=== PATIENT | female | born 1960 | race Hispanic/Latino ===

== ENCOUNTER 2020-08-05 08:30 | Emergency (ER) | payer SELFPAY ==
--- NOTE | 2020-08-05 14:00 | XRay Report ---
RIGHT SHOULDER 3 VIEWS INDICATION / CLINICAL INFORMATION: Fall/injury. COMPARISON: None available. FINDINGS: AP views in internal and external rotation show a significantly displaced fracture of the distal clav icle. The proximal end of the fracture is just beneath the skin surface. Humerus and scapula appear negative. Signer Name: Ray Troy MD Signed: 08/05/2020 1:56 PM Workstation Name: [id number]
--- NOTE | 2020-08-05 16:20 | Emergency Department Report ---
ED General Adult HPI - General Chief complaint: Syncope Stated complaint: RT SHOULDER/FALL PUI?: No Time Seen by Provider: 08/05/20 16:19 Source: patient, RN notes reviewed Mode of arrival: Ambulatory Limitations: Physical Limitation - History of Present Illness Initial comments: The patient was evaluated in the emergency department for symptoms described in the history of present illness. He/she was evaluated in the context of the global COVID-19 pandemic, which necessitated consideration that the patient might be at risk for infection with the virus that causes COVID-19. Institutional protocols and algorithms that pertain to the evaluation of patients at risk for COVID-19 are in a state of rapid change based on infor mation released by regulatory bodies including the CDC and federal and state organizations. These policies and algorithms were followed during the patient's care in the emergency department. Please note that these policies, procedures and recommendations changed on a rapid basis. The patient is a 60-year-old female. She has a history of anxiety. She is right-hand dominant. She does not have a local primary care doctor. The patient presents to the ER with a complaint of right clavicle and shoulder pain, and possible episode of syncope. The patient reports yesterday/this evening she was in her usual state of health, without headache, neck pain, chest pain, abdominal pain or shortness of breath. She reports that overnight, she went to the bathroom, and began to urinate. Shortly after urinating, she felt slightly dizzy, lightheaded, and felt like her legs were going to give out on her. She believes that she fell to her knees, braced herself with her right hand, landed on her right shoulder, and then right face. She thinks she might of lost consciousness "for just a second", but is not certain. She denies chest pain, shortness of breath, leg pain, leg swelling, oral contraceptive use and surgery. After the fall, she has right clavicle pain, right cannon pain, and right lateral facial pain. There is a mild headache. There is no midline neck pain. There is no chest pain. There is no abdominal pain. No extremity weakness/numbness. No urinary symptoms. No loss of taste or smell. No hematemesis or bright red blood per rectum. Right shoulder pain is sharp and throbbing, increases with palpation, decreases with rest. Does not radiate anywhere. -: Sudden Location: head, face, right, upper extremity Quality: aching Consistency: constant Improves with: rest Worsens with: movement - Related Data Previous Rx's Medication Instructions Recorded Last Taken Type Acetaminophen [Non-Aspirin Extra 500 mg PO Q6HR PRN #30 tablet 08/05/20 Unknown Rx Strength] Ibuprofen [Motrin] 600 mg PO Q8H PRN #30 tablet 08/05/20 Unknown Rx Morphine Sulfate [Morphine Sulfate 7.5 mg PO Q6HR PRN #10 tablet 08/05/20 Unknown Rx IR] Allergies Allergy/AdvReac Type Severity Reaction Status Date / Time cefuroxime [From Ceftin] Allergy Rash Verified 02/06/20 10:16 erythromycin base Allergy Rash Verified 02/06/20 10:16 ED Review of Systems ROS: Stated complaint: RT SHOULDER/FALL Other details as noted in HPI Constitutional: denies: fever Eyes: denies: eye pain, eye discharge, vision change ENT: denies: throat pain Respiratory: denies: cough Cardiovascular: syncope. denies: chest pain Gastrointestinal: denies: abdominal pain, nausea, vomiting, diarrhea, hematemesis, melena Genitourinary: denies: dysuria Musculoskeletal: arthralgia, myalgia Skin: change in color Neurological: headache. denies: weakness, numbness, paresthesias, confusion Hematological/Lymphatic: denies: easy bleeding ED Past Medical Hx - Past Medical History Previous Medical History?: Yes Hx Psychiatric Treatment: Yes - Surgical History Past Surgical History?: Yes Additional Surgical History: Right knee surgery - Social History Smoking Status: Never Smoker Substance Use Type: None - Medications Home Medications: Home Medications Medication Instructions Recorded Confirmed Last Taken Type Acetaminophen [Non-Aspirin Extra 500 mg PO Q6HR PRN #30 tablet 08/05/20 Unknown Rx Strength] Ibuprofen [Motrin] 600 mg PO Q8H PRN #30 tablet 08/05/20 Unknown Rx Morphine Sulfate [Morphine Sulfate 7.5 mg PO Q6HR PRN #10 tablet 08/05/20 Unknown Rx IR] ED Physical Exam - General Limitations: No Limitations General appearance: alert, anxious, obese - Head Head exam: Present: normocephalic, other (There is a left-sided chin ecchymosis) - Eye Eye exam: Present: normal appearance, PERRL, EOMI, periorbital tenderness (There is right lateral periorbital tenderness. There is right lateral periorbital swelling and ecchymosis.), other (Visual acuity intact to finger counting, color perception, reading at a close distance). Absent: nystagmus - ENT ENT exam: Present: normal exam, normal orophraynx, mucous membranes moist, normal external ear exam - Neck Neck exam: Present: normal inspection, full ROM. Absent: tenderness, meningismus - Respiratory Respiratory exam: Present: normal lung sounds bilaterally. Absent: respiratory distress, wheezes, rales, rhonchi, stridor, decreased breath sounds - Cardiovascular Cardiovascular Exam: Present: regular rate, normal rhythm, normal heart sounds. Absent: bradycardia, tachycardia, irregular rhythm, systolic murmur, diastolic murmur, rubs, gallop - GI/Abdominal GI/Abdominal exam: Present: soft. Absent: distended, tenderness, guarding, r ebound, rigid, pulsatile mass - Extremities Exam Extremities exam: Present: full ROM (Sensation is intact to light touch in the bilateral deltoid, median, radial, ulnar distribution. There is no long bony tenderness of the bilateral upper or lower extremities.), tenderness (The right distal lateral is tender, and deformed, without skin laceration), other (2+ pulses noted in the bilateral upper and lower extremities. There is no palpable cord. negative Homans sign. Muscular compartments are soft. The pelvis is stable.). Absent: pedal edema, calf tenderness - Back Exam Back exam: Present: normal inspection, full ROM. Absent: tenderness, CVA tenderness (R), CVA tenderness (L), paraspinal tenderness, vertebral tenderness - Neurological Exam Neurological exam: Present: alert, oriented X3, other (No facial droop. Tongue midline. Extraocular movements intact bilaterally. Facial sensation intact to light touch in V1, V2, V3 distribution bilaterally. 5 and a 5 strength in 4 extremities. Sensation intact to light touch in 4 extremities.). Absent: motor sensory deficit - Psychiatric Psychiatric exam: Present: anxious - Skin Skin exam: Present: warm, ecchymosis. Absent: rash ED Course Vital Signs 08/05/20 08/05/20 08/05/20 09:00 09:21 16:49 Temperature 97.9 F 98.4 F Pulse Rate 98 H 85 Respiratory 18 20 22 Rate Blood Pressure 128/86 100/56 O2 Sat by Pulse 98 100 Oximetry - Reevaluation(s) Reevaluation #1: 08/05/20 16:54 Differential diagnosis, include but not limited to: Orthostasis, vagal event, dehydration, electrolyte derangement, thyroid derangement, arrhythmia, closed head injury, concussion, clavicular fracture Assessment and plan: 60-year-old female, who is clinically sober at this time, with a GCS of 15, not currently tachycardic, tachypneic or hypoxic, without DVT or pulmonary embolism risk factors, low risk by Wells criteria, assuming negative troponin, low risk for major adverse cardiac event as per heart score, who presents with episode of possible loss of consciousness approximately 15 hours ago. Patient was asymptomatic prior to urinating. Suspect vagal event. Patient has been observed in this department for hours without recurrent syncopal events or loss of consciousness. Place patient on caster helper, obtain appropriate laboratory studies, CT scan of the brain, facial bones, and placed the right upper extremity in a sling. We will treat the patient's pain. Counseled patient that she should not drive or operate motor vehicles for the next 6 months, she will need to closely follow-up with outpatient orthopedics and cardiology, for her clavicular fracture, and episode of syncope, respectively. 08/05/20 18:[address] scan of the brain negative for acute findings. Patient has been observed in this department for approximately 10 hours without recurrent syncope, or clinical decompensation. Suitable to follow-up with outpatient. Prescriptions are written, sling will be distributed, patient will be counseled to follow-up with outpatient primary care, cardiology, orthopedics. ED Medical Decision Making - Lab Data Result diagrams: 08/05/20 16:39 08/05/20 16:39 Vital Signs 08/05/20 16:49 Respiratory 22 Rate Vital Signs 08/05/20 08/05/20 08/05/20 09:00 09:21 16:49 Temperature 97.9 F 98.4 F Pulse Rate 98 H 85 Respiratory 18 20 22 Rate Blood Pressure 128/86 100/56 O2 Sat by Pulse 98 100 Oximetry Lab Results 08/05/20 Range/Units 16:39 Hgb 12.8 (10.1-14.3) gm/dl Hct 38.3 (30.3-42.9) % Plt Count 387 (140-440) K/mm3 Lab Results 08/05/20 08/05/20 08/05/20 Range/Units 16:39 16:39 16:39 Hgb 12.8 (10.1-14.3) gm/dl Hct 38.3 (30.3-42.9) % Plt Count 387 (140-440) K/mm3 Sodium 136 L (137-145) mmol/L Potassium 4.8 (3.6-5.0) mmol/L Chloride 99.2 (98-107) mmol/L Carbon Dioxide 25 (22-30) mmol/L Anion Gap 17 mmol/L BUN 4 L (7-17) mg/dL Creatinine 0.5 L (0.6-1.2) mg/dL Estimated GFR > 60 ml/min BUN/Creatinine Ratio 8 % Glucose 103 H (65-100) mg/dL Calcium 9.9 (8.4-10.2) mg/dL Magnesium 2.10 (1.7-2.3) mg/dL Total Creatine Kinase 226 H (30-135) units/L Troponin T < 0.010 (0.00-0.029) ng/mL TSH 1.380 (0.270-4.200) mlU/mL - EKG Data -: EKG Interpreted by [facility] - EKG Data 08/05/20 16:56 Sinus rhythm, 84 bpm, normal axis, normal intervals, incomplete right bundle branch block, borderline left ventricular hypertrophy, abnormal EKG, not a STEMI 08/05/20 17:45 EKG #2, sinus rhythm, 74 bpm, normal axis, normal intervals, incomplete right bundle branch block, minimal motion artifact. Unchanged from prior EKG. Not a STEMI. - Radiology Data Radiology results: report reviewed, image reviewed Print Report Referring Physician: ED DOC Patient Name: MARK FISH Date of : 1960 Sex: Female Report Date: 2020-08-05 Report Status: Finalized Findings [facility] [address] [place] [address] XRay Report Signed Patient: MARK FISH MR#: [id number] 07 : 1960 Acct:[id number] Age/Sex: 60 / F ADM Date: 08/05/20 Loc: ED Attending Dr: Ordering Physician: ED DOC, MD Date of Service: 08/05/20 Procedure(s): XR shoulder 2+V RT Accession Number(s): [id number] cc: FREDO SIMMS MD Fluoro Time In Minutes: RIGHT SHOULDER 3 VIEWS INDICATION / CLINICAL INFORMATION: Fall/injury. COMPARISON: None available. FINDINGS: AP views in internal and external rotation show a significantly displaced fracture of the distal clavicle. The proximal end of the fracture is just beneath the skin surface. Humerus and scapula appear negative. Signer Name: Ray Troy MD Signed: 08/05/2020 1:56 PM Workstation Name: [id number] Transcribed By: TM Dictated By: Ray Troy MD Electronically Authenticated By: Ray Troy MD Signed Date/Time: 08/05/20 1356 DD/ 1354 TD/TT: Print Report Referring Physician: DUDLEY PEREZ Patient Name: MARK TORIBIO Date of : 1960 Sex: Female Report Date: 2020-08-05 Report Status: Finalized Findings [facility] [address] [place] [address] Cat Scan Report Signed Patient: MARK TORIBIO MR#: [id number] 607 : 1960 Acct:[id number] Age/Sex: 60 / F ADM Date: 08/05/20 Loc: ED Attending Dr: Ordering Physician: DUDLEY PEREZ MD Date of Service: 08/05/20 Procedure(s): CT facial bones wo con Accession Number(s): [id number] cc: DUDLEY PEREZ MD CT facial bones wo con INDICATION: closed head injurey. TECHNIQUE: CT face. All CT scans at this location are performed using CT dose reduction for ALARA by means of automated exposure control. COMPARISON: None. FINDINGS: Facial bones: Central midface: Nasal bones: Bilateral minimally displaced nasal bone fractures; nasal pyramid: Normal; perpendicular plate of ethmoid: Normal; no soft tissue swelling around the nasal septal cartilage Nasoorbitoethmoid: Normal Lateral midface: Orbit: Inferior orbital rim, floor of the orbit, lamina PTCA, medial and the lateral wall of the orbit and are normal Zygomaticomaxillary complex: Normal Zygomatic arch: Normal Mandible: Normal TMJ: Normal Sinuses: Paranasal sinuses and mastoid air cells are essentially clear. Orbits: Globes are intact. Additional findings:No other significant abnormality. IMPRESSION: Very minimally displaced bilateral nasal bone fractures Signer Name: Mariela Rojas MD Signed: 08/05/2020 5:47 PM Workstation Name: [id number] Transcribed By: BS Dictated By: Mariela Robbins MD Electronically Authenticated By: Anderson Robbins MD Signed Date/Time: 08/05/201746 DD/ 43 CT head/brain wo con INDICATION / CLINICAL INFORMATION: 60 years Female; closed head injurey. TECHNIQUE: Routine CT head without contrast. All CT scans at this location are performed using CT dose reduction for ALARA by means of automated exposure control. COMPARISON: None. FINDINGS: BRAIN / INTRACRANIAL CONTENTS: There is mild cerebral white matter disease most consistent with microvascular angiopathy at. The ventricular system is appropriate in size and configuration. There is no clear CT evidence of acute intracranial hemorrhage or significant mass effect. ORBITS: No significant abnormality of visualized orbits. SINUSES / MASTOIDS: The visualized paranasal sinuses are clear. The CT facial bones will be dictated separately. CRANIOCERVICAL JUNCTION: No significant abnormality. ADDITIONAL FINDINGS: None. IMPRESSION: 1. There is mild microvascular angiopathy without CT ends of acute intracranial hemorrhage. Signer Name: Dudley Ro MD Signed: 08/05/2020 5:44 PM Workstation Name: [id number] Critical care attestation.: If time is entered above; I have spent that time in minutes in the direct care of this critically ill patient, excluding procedure time. ED Disposition Clinical Impression: History of syncope Right clavicle fracture Qualifiers: Encounter type: initial encounter Clavicle location: lateral end Fracture type: closed Fracture alignment: displaced Qualified Code(s): S42.031A - Displaced fracture of lateral end of right clavicle, initial encounter for closed fracture Closed head injury Qualifiers: Encounter type: initial encounter Qualified Code(s): S09.90XA - Unspecified injury of head, initial encounter Blunt trauma of face Qualifiers: Encounter type: initial encounter Qualified Code(s): S09.93XA - Unspecified injury of face, initial encounter Nasal fracture Qualifiers: Encounter type: initial encounter Fracture type: closed Qualified Code(s): S02.2XXA - Fracture of nasal bones, initial encounter for closed fracture Disposition: DC-01 TO HOME OR SELFCARE Is pt being admited?: No Does the pt Need Aspirin: No Condition: Stable Instructions: Clavicle Fracture, [id number], Facial or Scalp Contusion, Nasal Fracture, [id number], Head Injury, Adult, [id number] Additional Instructions: Recommend that patient not drive or operate motor vehicles for the next 6 months, or until cleared to do so by a primary care doctor or glassware engraver. We recommend follow-up with the primary care doctor or glassware engraver within the next 3 to 5 days. Local primary care includes the following: Dr Alin Kolb Patient was found to have nondisplaced bilateral nasal bone fractures. This should heal on their own. Avoid heavy lifting, blunt trauma to the face, blowing nose, and picking nose. Patient may use [id number] nasal decongestant, such as Flonase, or Afrin, as directed on the package, if she so desires. However, this should heal with minimal intervention. Patient may follow-up with a primary care doctor for this within the next month, or ENT physician for this within the next month. Local cardiology includes Dr. Avalos. We recommend that patient follow-up with an orthopedist for her right upper extremity clavicle fracture within the next 3 to 5 days. Local orthopedist includes Dr. Lisa, and [facility]. Keep the right shoulder sling in place, and minimize utilization of the right upper extremity for any tasks. Take the pain medications as needed and directed. Please return to the emergency room right away with new pain, worsened pain, migration of pain, projectile vomiting, change in mental status, confusion, inability to tolerate liquid feeds, new, worsened or different symptoms not present on the initial emergency room evaluation. Pain typically gets worse before it gets better, therefore, expect to be very sore over the face, right upper extremity/shoulder/clavicle. Expect to be sore for at least a week to a week and a half. Prescriptions: Morphine Sulfate [Morphine Sulfate IR] 7.5 mg PO Q6HR PRN #10 tablet PRN Reason: Pain , Severe (7-10) Ibuprofen [Motrin] 600 mg PO Q8H PRN #30 tablet PRN Reason: Pain Acetaminophen [Non-Aspirin Extra Strength] 500 mg PO Q6HR PRN #30 tablet PRN Reason: Pain , Severe (7-10) Referrals: CELESTE KOLB MD [Staff Physician] - 3-5 Days MEGA LISA MD [Staff Physician] - 3-5 Days AISHA AVALOS MD [Staff Physician] - 3-5 Days [facility] [Provider Group] - 3-5 Days Heart Score - HEART Score History: Slightly suspicious EKG: Non-specific Age: 45-65 Risk factors: No known risk factors Troponin: < normal limit HEART Score: 2
[2020-08-05] MEDS ORDERED: oxyCODONE 5 MG TAB PO ONE (16:34)
[2020-08-05 17:02] LABS: Hematocrit 38.3 % (30.3-42.9); Hemoglobin 12.8 gm/dl (10.1-14.3)
[2020-08-05 17:17] LABS: Blood Urea Nitrogen 4 mg/dL (7-17); Calcium 9.9 mg/dL (8.4-10.2); Hemolysis Index 15
[2020-08-05 17:18] LABS: BUN/Creatinine Ratio 8
--- NOTE | 2020-08-05 17:52 | Cat Scan Report ---
CT facial bones wo con INDICATION: closed head injurey. TECHNIQUE: CT face. All CT scans at this location are performed using CT dose reduction for ALARA by means of automated exposure control. COMPARISON: None. FINDINGS: Facial bones: Central midface: Nasal bones: Bilateral minimally displaced nasal bone fractures; nasal pyramid: Normal; perpen dicular plate of ethmoid: Normal; no soft tissue swelling around the nasal septal cartilage Nasoorbitoethmoid: Normal Lateral midface: Orbit: Inferior orbital rim, floor of the orbit, lamina PTCA, medial and the lateral wall of t he orbit and are normal Zygomaticomaxillary complex: Normal Zygomatic arch: Normal Mandible: Normal TMJ: Normal Sinuses: Paranasal sinuses and mastoid air cells are essentially clear. Orbits: Globes are intact. Additional findings:No other significant abnormality. IMPRESSION: Very minimally displaced bilateral nasal bone fractures Signer Name: Mariela Rojas MD Signed: 08/05/2020 5:47 PM Workstation Name: [id number]
--- NOTE | 2020-08-05 18:48 | Cat Scan Report ---
CT head/brain wo con INDICATION / CLINICAL INFORMATION: 60 years Female; closed head injurey. TECHNIQUE: Routine CT head without contrast. All CT scans at this location are performed using CT dos e reduction for ALARA by means of automated exposure control. COMPARISON: None. FINDINGS: BRAIN / INTRACRANIAL CONTENTS: There is mild cerebral white matter disease most consistent with micro vascular angiopathy at. The ventricular system is appropriate in size and configuration. There is no clear CT evidence of acute intracranial hemorrhage or significant mass effect. ORBITS: No significant abnormality of visualized orbits. SINUSES / MASTOIDS: The visualized paranasal sinuses are clear. The CT facial bones will be dictated separately. CRANIOCERVICAL JUNCTION: No significant abnormality. ADDITIONAL FINDINGS: None. IMPRESSION: 1. There is mild microvascular angiopathy without CT ends of acute intracranial hemorrhage. Signer Name: Dudley Ro MD Signed: 08/05/2020 6:44 PM Workstation Name: [id number]
[2020-08-05] MEDS ORDERED: IBUPROFEN 600 MG TAB PO ONE (18:58)
[2020-08-06 04:20] VITALS: BP 151/85
== END 2020-08-05 19:25 | disposition home or self-care (01) ==
LOC: ED 08:30
DX: S42.031A Displaced fracture of lateral end of right clavicle, initial encounter for closed fracture (principal); S09.93XA Unspecified injury of face, initial encounter; S02.2XXA Fracture of nasal bones, initial encounter for closed fracture; S09.90XA Unspecified injury of head, initial encounter; R55 Syncope and collapse; Z79.899 Other long term (current) drug therapy; Z88.1 Allergy status to other antibiotic agents; Z88.8 Allergy status to other drugs, medicaments and biological substances; W19.XXXA Unspecified fall, initial encounter; Y93.89 Activity, other specified; Y92.89 Other specified places as the place of occurrence of the external cause; Y99.8 Other external cause status
CPT/HCPCS: 36415; 70450; 70486; 80048; 82550; 83735; 84443; 84484; 85014; 85018; 85049; 93005